=== PATIENT | male | born 1990 | race Caucasian/White ===

== ENCOUNTER → 2017-08-08 | Outpatient (CLI) | payer OTHER ==
--- NOTE | 2017-08-08 22:01 | RADIOLOGY IMAGING REPORT ---
FAC[place] [facility] [place] NAME: Sathya Alcantara : 1990 MR: [id number] V: [id number] EXAM DATE: ORDERING PHYSICIAN: JT QURESHI TECHNOLOGIST: Location: Patient: Sathya Alcantara : 1990 Visit/Account:[id number] Date of Sevice: 08/08/2017 EXAMINATION: LEFT LOWER EXTREMITY DOPPLER VENOUS ULTRASOUND DATE: 08/08/2017 8:52 PM INDICATION: Calf pain, family history of DVT. TECHNIQUE: Grayscale, color and pulsed Doppler ultrasound was performed of the left lower extremity v ei to evaluate for deep venous thrombosis. COMPARISON: None. FINDINGS: The left common femoral, superficial femoral, and popliteal veins are compressible with normal flow o n color Doppler and preserved venous waveform variation. There is also normal color Doppler flow in t he profunda femoris and greater saphenous veins. The left posterior tibial and peroneal veins are also patent. The contralateral right common femoral vein demonstrates normal flow on color Doppler and respiratory variations on pulsed Doppler. IMPRESSION: No evidence of deep venous thrombosis in the left lower extremity. Report Dictated By: Mitchell Reis MD at 08/08/2017 9:57 PM Report E-Signed By: Mitchell Reis MD at 08/08/2017 9:58 PM WSN:[id number]
== END ==
LOC: US 20:46
PROVIDERS: ATTEND Family Medicine
DX: I82.502 Chronic embolism and thrombosis of unspecified deep veins of left lower extremity (principal)

== ENCOUNTER → 2017-12-15 | Outpatient (CLI) | payer OTHER ==
[~2017-12-15] MED LIST: CHOL200018 PO
== END ==
LOC: LAB 08:23
PROVIDERS: ATTEND Emergency Medicine
DX: Z83.2 Family history of diseases of the blood and blood-forming organs and certain disorders involving the immune mechanism (principal)
CPT/HCPCS: 81240; 81241; 85300; 85303; 85306

== ENCOUNTER → 2017-12-15 | Outpatient (REF) ==
[2017-12-15 08:57] LABS: LDL CHOLESTEROL 83 mg/dl
== END ==
DX: Z02.9 Encounter for administrative examinations, unspecified (principal)

== ENCOUNTER → 2018-04-04 | Outpatient (CLI) | payer OTHER ==
[~2018-04-04] MED LIST changes: +AZIT-18 PO; +OSE75 PO
[2018-04-04 13:24] LABS: PLATELET COUNT, AUTOMATED 183 K/uL (150-450)
== END ==
LOC: LAB 13:05
PROVIDERS: ATTEND Emergency Medicine
DX: R50.9 Fever, unspecified (principal); R05 Cough; J09.X2 Influenza due to identified novel influenza A virus with other respiratory manifestations
CPT/HCPCS: 36415; 82040; 82247; 82310; 82374; 82435; 82565; 82947; 84075; 84132; 84155; 84295; 84450; 84460; 84520; 85025; 86140; 87502